=== PATIENT | female | born 1995 | race Two or more races ===

== ENCOUNTER → 2016-11-02 | Outpatient (REF) | payer OTHER ==
[2016-11-02 17:59] LABS: MEAN CORPUSCULAR HEMOGLOBIN 26.9 pg (27.0-33.0); MEAN CORPUSCULAR HGB CONC 32.6 g/dl (32.0-36.5); MEAN CORPUSCULAR VOLUME 82.5 fl (80.0-96.0); RED CELL DISTRIBUTION WIDTH 12.3 % (11.5-14.5); WHITE BLOOD COUNT 9.7 K/mm3 (4.0-10.0)
== END ==
LOC: M SFHCLERA 10:53
PROVIDERS: ATTEND Family Medicine
DX: Z13.220 Encounter for screening for lipoid disorders (principal)
CPT/HCPCS: 80061; 83036; 85027; G0463

== ENCOUNTER → 2017-01-11 | Outpatient (CLI) | payer OTHER ==
[~2017-01-11] MED LIST: ISOVUE-370 76% 100ML VIAL (Q9967) As Ordered ONE
--- NOTE | 2017-01-11 15:56 | REP ---
HYSTEROSALPINGOGRAM: Patient was referred for a hysterosalpingogram. The cervix was catheterized by the referring clinician who injected contrast. I performed fluoroscopy and obtained spot radiographs. Uterine cavity demonstrates no filling defect. There is free passage of contrast through both fallopian tubes. Fallopian tubes do not appear to be dilated. There is free intraperitoneal spillage bilaterally indicating bilateral fallopian tube patency. IMPRESSION: There is bilateral fallopian tube patency. 12 seconds of fluoroscopic time was utilized for the procedure. Signed by Justin Koroma MD 01/12/2017 07:38 P
== END ==
LOC: M RADPRO 12:30
PROVIDERS: ATTEND Obstetrics & Gynecology
DX: N97.9 Female infertility, unspecified (principal); N92.6 Irregular menstruation, unspecified
CPT/HCPCS: 58340; 74740; Q9967

== ENCOUNTER 2017-03-11 14:35 | Emergency (ER) | payer OTHER ==
[~2017-03-11] VITALS: Ht 154.9 cm; Wt 80.3 kg
[2017-03-11 14:36] VITALS: BP 135/87
[2017-03-11] MEDS ORDERED: IBUPROFEN 600 MG TAB PO ONE (16:15)
--- NOTE | 2017-03-11 16:42 | REP ---
HISTORY: Right buttock pain with walking. PRIORS: None. A single AP view of the pelvis was performed. The hip joint spaces are symmetric and relatively well maintained. There is no acute fracture or destructive osseous lesion. Signed by Clay Sánchez DO 03/11/2017 04:45 P
== END 2017-03-11 18:11 | disposition home or self-care (01) ==
LOC: M ED 14:35
DX: R52 Pain, unspecified (principal); E73.9 Lactose intolerance, unspecified

== ENCOUNTER 2018-04-21 18:13 | Inpatient (IN) | payer OTHER ==
[2018-04-21 19:07] LABS: HEMOGLOBIN 13.1 g/dl (12.0-15.5); MEAN CORPUSCULAR HEMOGLOBIN 26.6 pg (27.0-33.0); MEAN CORPUSCULAR VOLUME 83.3 fl (80.0-96.0); PLATELET COUNT, AUTOMATED 375 10^3/uL (150-450); RED BLOOD COUNT 4.92 10^6/uL (4.00-5.40); RED CELL DISTRIBUTION WIDTH 13.2 % (11.5-14.5); WHITE BLOOD COUNT 9.4 10^3/uL (4.0-10.0)
[2018-04-21 19:22] LABS: AMPHETAMINES LEVEL URINE NEGATIVE (NEGATIVE); BARBITURATES URINE NEGATIVE (NEGATIVE); BENZODIAZEPINES URINE NEGATIVE (NEGATIVE); CANNABINOIDS URINE NEGATIVE (NEGATIVE); COCAINE METABOLITE URINE NEGATIVE (NEGATIVE); METHADONE URINE NEGATIVE (NEGATIVE); OPIATES URINE NEGATIVE (NEGATIVE); PHENCYCLIDINE URINE NEGATIVE (NEGATIVE)
[2018-04-21 19:50] LABS: ACETAMINOPHEN LEVEL < 2.0 UG/ML (10.0-30.0); ALBUMIN 4.1 GM/DL (3.2-5.2); ALBUMIN/GLOBULIN RATIO 1.21 (1.00-1.93); ALKALINE PHOSPHATASE 85 U/L (45-117); ALT/SGPT 17 U/L (12-78); ANION GAP 9 MEQ/L (8-16); AST/SGOT 13 U/L (7-37); BILIRUBIN,DIRECT < 0.1 MG/DL (0.0-0.2); BILIRUBIN,TOTAL 0.3 MG/DL (0.2-1.0); BLOOD UREA NITROGEN 10 MG/DL (7-18); CALCIUM LEVEL 8.7 MG/DL (8.5-10.1); CARBON DIOXIDE LEVEL 24 MEQ/L (21-32); CHLORIDE LEVEL 108 MEQ/L (98-107); CREATININE FOR GFR 0.65 MG/DL (0.55-1.30); GLOMERULAR FILTRATION RATE > 60.0 (>60); GLUCOSE, FASTING 134 MG/DL (70-100); POTASSIUM SERUM 3.9 MEQ/L (3.5-5.1); SALICYLATE LEVEL < 1.7 MG/DL (5.0-30.0); SODIUM LEVEL 141 MEQ/L (136-145); THYROID STIMULATING HORMONE 0.793 uIU/ML (0.358-3.740); TOTAL PROTEIN 7.5 GM/DL (6.4-8.2)
[2018-04-21 19:51] LABS: ETHYL ALCOHOL (ETHANOL) < 0.003 % (0.000-0.010)
[2018-04-21] MEDS ORDERED: MOM 30ML SUSPENSION UDC PO (21:30)
[2018-04-21] MEDS ORDERED: NICOTINE 21MG/24HR 1 EA TRANSDERMAL TD (21:30)
[2018-04-21] MEDS ORDERED: MAALOX 30 ML SUSP *UDC PO (21:30)
[2018-04-21] MEDS ORDERED: diphenhydrAMINE 25 MG CAP PO (21:30)
[2018-04-21 21:31] LABS: CONTROL LINE HCG INT CTR LINE PRESENT; HCG, SERUM QUALITATIVE NEGATIVE (NEGATIVE)
[2018-04-21 22:56] LABS: CHLAMYDIA DNA AMPLIFICATION NEGATIVE (NEGATIVE); GC DNA AMPLIFICATION NEGATIVE (NEGATIVE)
[2018-04-22] MEDS: SERTRALINE HCL 25 MG TABLET PO (09:00)
[2018-04-22] MEDS: INFLUENZA QUADRIVALENT PF VACCINE 0.5ML SYRINGE (90686) IM (09:36)
[2018-04-23] MEDS: SERTRALINE HCL 25 MG TABLET PO (09:07)
[2018-04-23] MEDS: hydrOXYzine 10 MG TAB PO ×2 (15:13→23:10)
[2018-04-23] MEDS: traZODone 50 MG TAB PO (23:10)
[2018-04-23] MEDS: ACETAMINOPHEN TAB 650MG DOSE (2X325MG) PO (23:12)
[2018-04-24] MEDS: SERTRALINE HCL 25 MG TABLET PO (09:27)
[2018-04-24] MEDS: ACETAMINOPHEN TAB 650MG DOSE (2X325MG) PO (22:53)
[2018-04-24] MEDS: traZODone 50 MG TAB PO (22:53)
[2018-04-25] MEDS: SERTRALINE HCL 25 MG TABLET PO (09:11)
== END 2018-04-25 10:40 | disposition home or self-care (01) | DRG 881 ==
LOC: M ED 18:13 → M ED INP 21:24 → M PSY 23:20
DX: F32.9 Major depressive disorder, single episode, unspecified (principal); R45.851 Suicidal ideations; F43.0 Acute stress reaction

== ENCOUNTER 2018-06-05 14:40 | Emergency (ER) | payer OTHER ==
[2018-06-05 16:05] LABS: BASO # 0.1 10^3/uL (0.0-0.2); BASO % 0.7 % (0.0-1.0); EOS # 0.2 10^3/uL (0.0-0.50); EOS % 1.7 % (0.0-3.0); HEMATOCRIT 40.9 % (36.0-47.0); HEMOGLOBIN 13.2 g/dl (12.0-15.5); IMMATURE GRANULOCYTE % 0.6 % (0-3.0); LYMPH # 3.5 10^3/uL (1.5-6.5); LYMPH % 34.8 % (24.0-44.0); MEAN CORPUSCULAR HEMOGLOBIN 26.4 pg (27.0-33.0); MEAN CORPUSCULAR HGB CONC 32.3 g/dl (32.0-36.5); MEAN CORPUSCULAR VOLUME 81.8 fl (80.0-96.0); MONO # 0.9 10^3/uL (0.0-0.8); MONO % 8.9 % (0.0-5.0); NEUTROPHILS # 5.3 10^3/uL (1.8-7.7); NEUTROPHILS % 53.3 % (36.0-66.0); PLATELET COUNT, AUTOMATED 373 10^3/uL (150-450); RED CELL DISTRIBUTION WIDTH 13.1 % (11.5-14.5)
[2018-06-05 16:19] LABS: KETONE, URINE AUTO RFX TRACE mg/dL (NEGATIVE); LEUKOCYTE ESTERASE UR AUTO RFX NEGATIVE (NEGATIVE); MUCUS, URINE RFX SMALL (NEGATIVE); NITRITE, URINE AUTO RFX NEGATIVE (NEGATIVE); RBC, URINE AUTO RFX 1 /HPF (0-3); SQUAM EPITHELIAL CELL UR AURFX 3 /HPF (0-6); WBC, URINE AUTO RFX 1 /HPF (0-3)
[2018-06-05 16:25] LABS: CONTROL LINE HCG INT CTR LINE PRESENT; HCG, SERUM QUALITATIVE NEGATIVE (NEGATIVE)
[2018-06-05 16:26] LABS: ALBUMIN 3.9 GM/DL (3.2-5.2); ALBUMIN/GLOBULIN RATIO 1.08 (1.00-1.93); ALKALINE PHOSPHATASE 83 U/L (45-117); ALT/SGPT 20 U/L (12-78); ANION GAP 8 MEQ/L (8-16); AST/SGOT 18 U/L (7-37); BILIRUBIN,TOTAL 0.3 MG/DL (0.2-1.0); BLOOD UREA NITROGEN 11 MG/DL (7-18); CALCIUM LEVEL 8.5 MG/DL (8.5-10.1); CARBON DIOXIDE LEVEL 24 MEQ/L (21-32); CHLORIDE LEVEL 106 MEQ/L (98-107); CREATININE FOR GFR 0.61 MG/DL (0.55-1.30); GLOMERULAR FILTRATION RATE > 60.0 (>60); GLUCOSE, FASTING 91 MG/DL (70-100); SODIUM LEVEL 138 MEQ/L (136-145); TOTAL PROTEIN 7.5 GM/DL (6.4-8.2)
== END 2018-06-05 17:31 | disposition home or self-care (01) ==
LOC: M ED 14:40
DX: N92.0 Excessive and frequent menstruation with regular cycle (principal); E73.9 Lactose intolerance, unspecified; Z79.899 Other long term (current) drug therapy
CPT/HCPCS: 80053

== ENCOUNTER → 2018-11-09 | Outpatient (REF) | payer OTHER ==
[~2018-11-09] MED LIST changes: -ISOVUE-370 76% 100ML VIAL (Q9967) As Ordered ONE; +SERT-138; +SERT25TA85 PO; +TRAZO50TA PO
== END ==
LOC: M SFHCLERA 14:48
PROVIDERS: ATTEND Nurse Practitioner Family
DX: R10.9 Unspecified abdominal pain (principal)
CPT/HCPCS: 81002; 81025; 87086; G0463

== ENCOUNTER 2019-03-16 22:54 | Emergency (ER) | payer OTHER ==
[~2019-03-16] VITALS: Ht 152.4 cm; Wt 86.4 kg
[2019-03-16 22:54] VITALS: BP 126/79
[~2019-03-16 22:54] MED LIST changes: +TRAZ1TAB10 PO; -TRAZO50TA PO
== END 2019-03-17 00:35 | disposition left against medical advice (07) ==
LOC: M ED 22:54
DX: Z53.21 Procedure and treatment not carried out due to patient leaving prior to being seen by health care provider (principal)

== ENCOUNTER 2020-02-17 13:01 | Emergency (ER) | payer OTHER ==
[~2020-02-17] VITALS: Ht 152.4 cm; Wt 90.9 kg
[2020-02-17 13:11] VITALS: BP 134/82
[2020-02-17] MEDS ORDERED: SERT-138 PO (13:19)
[2020-02-17] MEDS ORDERED: PANT40TA29 PO (13:19)
[2020-02-17] MEDS ORDERED: KETOROLAC 60MG 2ML VIAL IM ONE (13:30)
[2020-02-17] MEDS ORDERED: diazePAM 10MG/2ML SYRINGE (J3360 PER 5MG) IM ONE (13:30)
[2020-02-17] MEDS ORDERED: CYCL-707 PO (14:55)
[2020-02-17] MEDS ORDERED: IBUP-1022 PO (14:55)
== END 2020-02-17 15:13 | disposition home or self-care (01) ==
LOC: EDBD 13:01 → M ED 13:01
DX: M54.5 Low back pain (principal); Z79.899 Other long term (current) drug therapy
CPT/HCPCS: 96372; 96374; 99284; J1885; J3360

== ENCOUNTER → 2020-04-24 | Outpatient (CLI) | payer OTHER, SELFPAY ==
[~2020-04-24] MED LIST changes: +CYCL-707 PO; +IBUP-1022 PO; +PANT40TA29 PO; +SERT-138 PO
[2020-04-24 13:29] LABS: RHEUMATOID FACTOR QUANT < 10.0 IU/ML (<15.0)
[2020-04-24 13:41] LABS: TOTAL 25(OH) VITAMIN D 24.8 NG/ML (30.0-100.0); VITAMIN B12 LEVEL 428 PG/ML
[2020-04-26 23:07] LABS: ANTI DOUBLE STRAND-DNA AB 1 IU/mL (0-9); ANTINUCLEAR ANTIBODIES DIRECT Positive (Negative); RNP ANTIBODIES <0.2 AI (0.0-0.9); SJOGREN'S ANTI SS-A <0.2 AI (0.0-0.9); SJOGREN'S ANTI SS-B <0.2 AI (0.0-0.9); SMITH ANTIBODIES <0.2 AI (0.0-0.9); VITAMIN E(ALPHA TOCOPHEROL) 11.1 mg/L (5.9-19.4); VITAMIN E(GAMMA TOCOPHEROL) 2.4 mg/L (0.7-4.9)
[2020-04-30 11:09] LABS: CERULOPLASMIN 23.5 mg/dL (19.0-39.0); VITAMIN B1 LEVEL WHOLE BLOOD 143.7 nmol/L (66.5-200.0); VITAMIN B6,PYRIDOXAL PHOSPHATE 31.1 ug/L (2.0-32.8)
== END ==
LOC: M LAB 10:00
PROVIDERS: ATTEND Psychiatry & Neurology Neurology
DX: R25.1 Tremor, unspecified (principal)

== ENCOUNTER → 2020-04-25 | Outpatient (CLI) | payer OTHER, SELFPAY | LOC: M LAB 09:38 | PROVIDERS: ATTEND Psychiatry & Neurology Neurology | DX: R25.1 Tremor, unspecified (principal) ==

== ENCOUNTER 2021-08-30 19:21 | Emergency (ER) | payer BC, SELFPAY ==
[~2021-08-30] VITALS: Ht 152.4 cm; Wt 102.2 kg
[2021-08-30 19:23] VITALS: BP 130/88
[2021-08-30] MEDS ORDERED: TOPI50TA9 PO (19:40)
[2021-08-30] MEDS ORDERED: HYDR-643 PO (19:40)
[2021-08-30] MEDS ORDERED: ENSK1TAB3 PO (19:44)
[2021-08-30] MEDS ORDERED: ONDA4TAB6 PO (20:40)
[2021-08-30] MEDS ORDERED: ONDANSETRON 4 MG ORAL DISINTEGRATING TAB PO ONE (20:40)
[2021-08-30 20:59] VITALS: O2SAT 98
== END 2021-08-30 21:02 | disposition home or self-care (01) ==
LOC: M ED 19:21
DX: U07.1 COVID-19 (principal)
CPT/HCPCS: 87880; 99283; Q0162

== ENCOUNTER → 2022-12-06 | Outpatient (CLI) | payer BC ==
[~2022-12-06] MED LIST changes: +ENSK1TAB3 PO; +HYDR-643 PO; +ONDA4TAB6 PO; +TOPI-254 PO
== END ==
LOC: M WUC 09:41
PROVIDERS: ATTEND Nurse Practitioner Family
DX: Z02.1 Encounter for pre-employment examination (principal)

== ENCOUNTER 2023-03-28 19:31 | Emergency (ER) | payer SELFPAY ==
[~2023-03-28] VITALS: Ht 152.4 cm; Wt 98.0 kg
[2023-03-28] MEDS ORDERED: KETOROLAC 30 MG/ML 1ML VIAL IV ONE (20:55)
[2023-03-28] MEDS ORDERED: NS 1,000 ML IV ONE (20:55)
[2023-03-28] MEDS ORDERED: ONDANSETRON 4MG 2ML VIAL IV ONE (20:55)
[2023-03-28 21:30] LABS: BASO # 0.1 10^3/uL (0.0-0.2); BASO % 0.4 % (0.0-1.0); EOS % 0.2 % (0.0-3.0); HEMATOCRIT 41.3 % (36.0-47.0); HEMOGLOBIN 13.3 g/dl (12.0-15.5); LYMPH # 1.8 10^3/uL (1.5-5.0); LYMPH % 10.8 % (24.0-44.0); MEAN CORPUSCULAR HEMOGLOBIN 26.5 pg (27.0-33.0); MEAN CORPUSCULAR HGB CONC 32.2 g/dl (32.0-36.5); MEAN CORPUSCULAR VOLUME 82.3 fl (80.0-96.0); NEUTROPHILS # 13.2 10^3/uL (1.5-8.5); NEUTROPHILS % 78.6 % (36.0-66.0); RED BLOOD COUNT 5.02 10^6/uL (4.00-5.40); WHITE BLOOD COUNT 16.7 10^3/uL (4.0-10.0)
[2023-03-28 21:48] LABS: LIPASE 27 U/L (12-53)
[2023-03-28 21:50] LABS: ALBUMIN 3.7 G/DL (3.2-5.2); ALKALINE PHOSPHATASE 72 U/L (46-116); ALT/SGPT 12 U/L (7.0-40); AST/SGOT 17 U/L (<34); BILIRUBIN,DIRECT 0.3 MG/DL (<0.4); BLOOD UREA NITROGEN 7 MG/DL (9-23); CARBON DIOXIDE LEVEL 22 MMOL/L (20-31); CHLORIDE LEVEL 107 MMOL/L (98-107); CREATININE FOR GFR 0.57 MG/DL (0.55-1.30); GLOMERULAR FILTRATION RATE > 60.0 (>60); GLUCOSE, FASTING 105 MG/DL (60-100); POTASSIUM SERUM 4.5 MMOL/L (3.5-5.1); SODIUM LEVEL 138 MMOL/L (136-145); TOTAL PROTEIN 7.3 G/DL (5.7-8.2)
[2023-03-28 21:55] LABS: MONO # 1.6 10^3/uL (0.0-0.8)
[2023-03-28 21:56] LABS: MONO % 9.3 % (2.0-8.0)
[2023-03-28] MEDS: GASTROGRAFIN SOLUTION 30ML PO SCH ×2 (21:57→22:31)
[2023-03-28] MEDS ORDERED: ISOVUE-370 76% 100ML VIAL As Ordered ONE (22:50)
[2023-03-28] MEDS ORDERED: cefTRIAXone SOD 1 GM in D5W MINI-BAG PLUS 50 ML IV ONE (23:40)
[2023-03-29 00:24] VITALS: BP 115/69; TEMP 98.3; O2SAT 99
[2023-03-29] MEDS ORDERED: SULF1TAB23 PO (00:39)
== END 2023-03-29 01:28 | disposition home or self-care (01) ==
LOC: M ED 19:31
DX: N10 Acute pyelonephritis (principal); M54.50 Low back pain, unspecified; F32.A Depression, unspecified; K57.92 Diverticulitis of intestine, part unspecified, without perforation or abscess without bleeding; F17.200 Nicotine dependence, unspecified, uncomplicated; Z79.83 Long term (current) use of bisphosphonates; Z79.899 Other long term (current) drug therapy
CPT/HCPCS: 74177; 80048; 80076; 81001; 83690; 84702; 85025; 87088; 87186; 96361; 96374; 96375; 99284; J0696; J1885; J2405; Q9963; Q9967